=== PATIENT | male | born 1995 | race Caucasian/White ===

== ENCOUNTER 2017-02-28 17:54 | Emergency (ER) | payer SELFPAY ==
[2017-02-28 18:07] VITALS: TEMP 98.8; O2SAT 97
[2017-02-28] MEDS ORDERED: NEOMYCIN-BACITRACIN-POLYMYXIN 0.9 GM UD TOP ONE ×3 (18:19→18:37)
--- NOTE | 2017-02-28 18:29 | ED.PDOC ---
History of Present Illness - General Chief Complaint: Laceration Stated Complaint: laceration to finger Time Seen by Provider: 02/28/17 18:10 Source: patient Exam Limitations: no limitations - History of Present Illness Initial Comments: HE WAS WRAPPING A PIPE TO PREVENT FROM FREEZING AND ACCIDENTALLY INJURED THE DISTAL LEFT DIGIT-VOLAR ASPECT. HE DID CUT A MODERATE AMOUNT OF THE SKIN SUSTAINING AN AVULSION LACERATION OF THE DISTAL FOURTH LEFT FINGER. HE SAYS THAT HE HAD A TETANUS SHOT THREE YEARS AGO. Timing/Duration: just prior to arrival Severity: moderate Location: hands Improving Factors: nothing Worsening Factors: nothing Associated Symptoms: denies symptoms Allergies/Adverse Reactions: Allergies NO KNOWN ALLERGY Allergy (Verified 10/23/14 10:01) Home Medications: Ambulatory Orders Omeprazole [Prilosec] 40 mg PO DAILY 09/17/13 Sulfa/Trimeth 800/160 (Ds) Tab [Bactrim DS] 1 tablet PO BID #20 tab 02/28/17 Review of Systems - Review of Systems Constitutional: States: no symptoms reported EENTM: States: no symptoms reported Respiratory: States: no symptoms reported Cardiology: States: no symptoms reported Gastrointestinal/Abdominal: States: no symptoms reported Genitourinary: States: no symptoms reported Musculoskeletal: States: no symptoms reported Skin: States: other - LACERATION NOTED ON HPI. Neurological: States: no symptoms reported Endocrine: States: no symptoms reported Hematologic/Lymphatic: States: no symptoms reported All other Systems: Reviewed and Negative Past Medical History (General) - Patient Medical History Hx Stroke: No Hx Congestive Heart Failure: No Hx Hypertension: No Hx Diabetes: No Hx Gastroesophageal Reflux: Yes - Vaccination History Hx Tetanus, Diphtheria Vaccination: - 2013 Hx Influenza Vaccination: No - Social History Hx Tobacco Use: No Hx Chewing Tobacco Use: Yes Family Medical History - Family History Grandparents Living Status: Hx Cardiac Disease: Yes - MS's Hx Family Diabetes: Yes Physical Exam - Physical Exam General Appearance: Alert, Anxious Eyes, Ears, Nose, Throat Exam: PERRL/EOMI, normal ENT inspection, TMs normal Neck: non-tender, full range of motion, supple, normal inspection Cardiovascular/Chest: normal peripheral pulses, regular rate, rhythm, no edema, no gallop Respiratory: chest non-tender, lungs clear Gastrointestinal/Abdominal: normal bowel sounds, non tender, soft Back Exam: normal inspection Extremity: normal range of motion, other - AVUSLSION LACERATION TO THE LEFT DISTAL FOURTH DIGIT - VOLAR ASPECT. Progress - Results/Orders Results/Orders: THE WOUND WAS GAPING TOO MUCH TO BE REPAIRED. IT WAS CLEANED AND USING A SILVER NITRATE STICK HEMOSTASIS WAS OBTAINED. THE PATIENT TOLERATED WELL. ANTIBIOTIC OINTMENT AND A PRESSURE DRESSING WAS PLACED. Departure - Departure Clinical Impression: Finger avulsion Qualifiers: Encounter type: initial encounter Qualified Code(s): S61.209A - Unspecified open wound of unspecified finger without damage to nail, initial encounter Disposition: Discharge to Home or Self Care Condition: Good Departure Forms: ED Discharge - Pt. Copy, Patient Portal Self Enrollment Instructions: DI for Laceration Repair, How to Care for a Laceration After Repair Diet: resume usual diet Activity: increase activity as tolerated Prescriptions: Sulfa/Trimeth 800/160 (Ds) Tab [Bactrim DS] 1 tablet PO BID #20 tab Home Medications: Ambulatory Orders Omeprazole [Prilosec] 40 mg PO DAILY 09/17/13 Sulfa/Trimeth 800/160 (Ds) Tab [Bactrim DS] 1 tablet PO BID #20 tab 02/28/17
[2017-02-28 18:56] VITALS: BP 137/79
== END 2017-02-28 18:50 | disposition home or self-care (01) ==
LOC: ER 17:54
DX: S61.215A Laceration without foreign body of left ring finger without damage to nail, initial encounter (principal); W26.9XXA Contact with unspecified sharp object(s), initial encounter; Y92.9 Unspecified place or not applicable

== ENCOUNTER 2017-11-08 09:16 | Emergency (ER) | payer SELFPAY ==
[2017-11-08 09:33] VITALS: O2SAT 95
--- NOTE | 2017-11-08 09:42 | ED.PDOC ---
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 Sporadic fevers that responded to ibuprofen. Malaise. No sick contacts. Timing/Duration: getting worse, changing over time Fever Severity/Quality: greater than 102 F Fever Therapy MEDICAL BILLING ASSISTANT: Ibuprofen Associated Symptoms: headache, sore throat, weakness, other Review of Systems - Review of Systems Constitutional: States: see HPI, fever, weakness EENTM: States: throat pain. Denies: eye pain, ear pain, nose congestion Respiratory: States: no symptoms reported Cardiology: States: no symptoms reported Gastrointestinal/Abdominal: States: diarrhea - no diarrhea today - was at worst mild yesterday, nausea, vomiting - vomiting resolved. Denies: abdominal pain Genitourinary: States: no symptoms reported Musculoskeletal: States: neck pain - anterior left & bilateral trapezial ridges ; no midline pain Skin: States: no symptoms reported Neurological: States: headache - headache mainly to the crown of his head. Denies: numbness, paresthesia Endocrine: States: no symptoms reported Past Medical History (General) - Patient Medical History Hx Stroke: No Hx Congestive Heart Failure: No Hx Hypertension: No Hx Diabetes: No Hx Gastroesophageal Reflux: Yes Surgical History: no surgical history - Vaccination History Hx Tetanus, Diphtheria Vaccination: - 2013 Hx Influenza Vaccination: No - Social History Hx Tobacco Use: No Hx Chewing Tobacco Use: Yes - Activities of Daily Living Patient Lives Alone: No Family Medical History - Family History Grandparents Living Status: Hx Cardiac Disease: Yes - TX's Hx Family Diabetes: Yes Physical Exam - Physical Exam General Appearance: Alert, Comfortable, No apparent distress Eye Exam: bilateral normal ENT Exam: hearing grossly normal, pharyngeal erythema Neck: full range of motion, supple, normal inspection, trachea midline, lymphadenopathy (L), tender lateral - tenderness limited to left anterior - suspected node Respiratory: lungs clear, normal breath sounds, no respiratory distress, no accessory muscle use Cardiovascular/Chest: regular rate, rhythm, no edema, no gallop, no JVD, no murmur Gastrointestinal/Abdominal: non tender, soft, no organomegaly Extremity: normal range of motion, normal inspection, no pedal edema 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 His skin exam there is somewhat obscured by his ibarra. He appears well at discharge. The plan is fever control for 24 more hours. If he is not improving then Keflex was prescribed to cover either strep pharyngitis or strep cellulitis if skin changes appear in the area of tenderness. - Results/Orders Results/Orders: strep negative declined further testing Departure - Departure Clinical Impression: Fever in adult Pharyngitis Qualifiers: Pharyngitis/tonsillitis etiology: unspecified etiology Qualified Code(s): J02.9 - Acute pharyngitis, unspecified Time of Disposition: 10:23 Disposition: Discharge to Home or Self Care Condition: Fair Departure Forms: ED Discharge - Pt. Copy, Patient Portal Self Enrollment Instructions: DI for Fever (Symptom) -- Adult Prescriptions: Cephalexin Monohydrate [Keflex] 500 mg PO Q8H #30 cap Home Medications: Ambulatory Orders Omeprazole [Prilosec] 40 mg PO DAILY 09/17/13 Sulfa/Trimeth 800/160 (Ds) Tab [Bactrim DS] 1 tablet PO BID #20 tab 02/28/17 Cephalexin Monohydrate [Keflex] 500 mg PO Q8H #30 cap 11/08/17
[2017-11-08 11:04] VITALS: BP 123/80; TEMP 100.5
== END 2017-11-08 10:25 | disposition home or self-care (01) ==
LOC: ER 09:16
DX: J02.9 Acute pharyngitis, unspecified (principal); M54.2 Cervicalgia; K21.9 Gastro-esophageal reflux disease without esophagitis; Z87.891 Personal history of nicotine dependence